=== PATIENT | male | born 1955 | race Caucasian/White ===

== ENCOUNTER 2016-06-11 18:33 | Emergency (ER) | payer SELFPAY ==
[~2016-06-11] VITALS: Ht 165.1 cm; Wt 65.8 kg
[~2016-06-11 18:33] MED LIST: NKM
[2016-06-11 18:58] VITALS: BP 160/96
[2016-06-11 18:59] VITALS: BP 160/96
--- NOTE | 2016-06-11 19:01 | Emergency Room Report ---
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 Never been here before. Before I saw patient, he was yelling in the ED, complaining of "having to answer so many questions." I asked patient why he was here and he endorses "whatever will get me admitted. " I told patient that that is not an appropriate use of ED and public health resources and asked him about his medical problems and a specific reason he called EMS. Patient endorses "This is a waste of my time, just give me my discharge papers." Patient was provided DC papers, encouraged to followup with PMD. Allergies: Coded Allergies: No Known Allergies (Unverified , 06/11/16) Patient History Past Medical History: unable to obtain Past Surgical History: none Pertinent Family History: none Social History: Denies: alcohol use, drug use, smoking Immunizations: UTD Reviewed Nursing Documentation: PMH: Agreed, PSxH: Agreed Nursing Documentation-PMH Past Medical History: No History, Except For Hx Cardiac Problems: Yes - disarrhymia Hx Gastrointestinal Problems: Yes - Hep C Hx Cerebrovascular Accident: Yes Review of Systems All Other Systems: negative except mentioned in HPI Physical Exam Vital Signs Date Time Temp Pulse Resp B/P Pulse Ox O2 Delivery O2 Flow Rate FiO2 06/11/16 18:27 97.3 72 20 160/96 98 Room Air Sp02 EP Interpretation: reviewed, normal General Appearance: normal inspection, well appearing, no apparent distress, alert, GCS 15, non-toxic, other - Multiple jackets, well groomed, not disheveled Head: normocephalic, atraumatic Eyes: bilateral eye EOMI, bilateral eye PERRL ENT: normal ENT inspection, hearing grossly normal, normal voice Neck: normal inspection, full range of motion, supple, no bony tend Respiratory: normal inspection, lungs clear, normal breath sounds, no respiratory distress, no retraction, no wheezing Cardiovascular #1: regular rate, rhythm, no edema Gastrointestinal: normal inspection, normal bowel sounds, non tender, soft, no guarding, no hernia Genitourinary: no CVA tenderness Musculoskeletal: normal inspection, back normal, normal range of motion, Rabia' s Sign negative Neurologic: normal inspection, alert, oriented x3, responsive, 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 Afebrile. Patient refused to provide additional HPI, wants to leave Was DCed Last Vital Signs Date Time Temp Pulse Resp B/P Pulse Ox O2 Delivery O2 Flow Rate FiO2 06/11/16 18:27 97.3 72 20 160/96 98 Room Air Status: improved Disposition: HOME, SELF-CARE Condition: Improved Patient Instructions: Musculoskeletal Pain Additional Instructions: - Please follow up with your primary care doctor in 2-3 days - Take over the counter tylenol or ibuprofen for pain ABEL MONROE M.D. Jun 11, 2016 19:01
== END 2016-06-11 19:30 | disposition home or self-care (01) ==
LOC: EDBD 18:33 → EDUNIT# 18:33 → EMR 19:01
DX: R52 Pain, unspecified (principal); Z76.5 Malingerer [conscious simulation]; Z86.73 Personal history of transient ischemic attack (TIA), and cerebral infarction without residual deficits; B19.20 Unspecified viral hepatitis C without hepatic coma; Z59.0 Homelessness
CPT/HCPCS: 99283